=== PATIENT | female | born 1985 | race Caucasian/White ===

== ENCOUNTER 2016-02-27 13:06 | Emergency (ER) | payer OTHER ==
[~2016-02-27 13:06] MED LIST: NAPR250T57 PO; PERC5TAB12 PO; PREN1TAB30 PO; ZANTTAB9 PO
[2016-02-27 13:08] VITALS: BP 118/68; PULSE 106; RESP 12; TEMP 98.3; O2SAT 97
[2016-02-27] MEDS ORDERED: PROG100C PO (14:59)
[2016-02-27] MEDS ORDERED: ZOFR4TAB PO (14:59)
[2016-02-27] MEDS ORDERED: SODIUM CHLOR 0.9% 1000 ML INJ 1,000 ML IV SCH ×2 (15:08→16:10)
--- NOTE | 2016-02-27 15:09 | PD ---
HPI Chief Complaint: Related Problem Time Seen by Provider: 15:09 Travel History International Travel<30 days: No Contact w/Intl Traveler<30days: No Traveled to known affect area: No History of Present Illness HPI 30-year-old female presents to the emergency department for evaluation of nausea and vomiting since last night. The patient is approximately 9 weeks , dates confirmed by an ultrasound done at her TOOL AND DIE MAKER's office. States that last night she began to have nausea and vomiting and has been unable to keep any food or fluids down since last night. States that her TOOL AND DIE MAKER Dr. Vaughan called in a prescription for Zofran but this has not improved her symptoms. States she is also having some mild abdominal cramping mostly epigastric region. She denies any fever, chills, diarrhea, constipation, bloody stool, bloody vomit, vaginal bleeding, vaginal discharge, burning with urination, painful urination, hematuria. Denies any prior abdominal surgeries. No other complaints. PFSH Past Medical History Medical History: Denies Significant Hx Immunizations Current: Yes Influenza Vaccination: No ?: LMP: 9 WKS PREGO Para: 1 Miscarriage: 2 Past Surgical History Surgical History: No Previous Surgery Section: Yes Social History Alcohol Use: Yes (occas) Tobacco Use: No Substance Use: No Allergies-Medications (Allergen,Severity, Reaction): Coded Allergies: No Known Allergies (Unverified , 02/27/16) Reported Meds & Prescriptions Reported Meds & Active Scripts Active Reported Zofran (Ondansetron HCl) 4 Mg Tab 4 Mg PO Q6HR PRN Progesterone Micronized 100 Mg Cap 100 Mg PO BID Review of Systems Except as stated in HPI: all other systems reviewed are Neg Physical Exam Narrative GENERAL: Well-nourished and well-developed pleasant female patient in no acute distress who is nontoxic appearing. SKIN: Warm and dry. HEAD: Normocephalic and atraumatic. EYES: No injection, drainage, or hyphema noted. PERRLA. EOMI. ENT: No nasal drainage noted. Oropharynx is clear. NECK: Supple and the trachea is midline. CARDIOVASCULAR: Regular rate and rhythm. RESPIRATORY: Breath sounds are equal bilaterally with no accessory muscle use, wheezing, rhonchi, or crackles. GASTROINTESTINAL: Abdomen is soft, non-tender, and nondistended. No rebound tenderness or guarding. Negative McBurney's point. Negative Mendoza's sign. MUSCULOSKELETAL: No obvious deformities, swelling, cyanosis, or ecchymosis is present throughout the upper and lower extremities. Patient has full range of motion without any signs of neurovascular compromise. NEUROLOGICAL: Awake, alert, and oriented. Normal speech and gait. Cranial nerves are grossly intact. Data Data Last Documented VS Vital Signs Date Time Temp Pulse Resp B/P Pulse Ox O2 Delivery O2 Flow Rate FiO2 02/27/16 13:08 98.3 106 12 118/68 97 Room Air Orders Beta Hcg (Quant/Titer) (02/27/16 15:08) Complete Blood Count With Diff (02/27/16 15:08) Comprehensive Metabolic Panel (02/27/16 15:08) Urinalysis - C+S If Indicated (02/27/16 15:08) Iv Access Insert/Monitor (02/27/16 15:08) Sodium Chloride 0.9% Flush (Ns Flush) (02/27/16 15:15) Lipase (02/27/16 15:08) Ondansetron Inj (Zofran Inj) (02/27/16 15:15) Sodium Chlor 0.9% 1000 Ml Inj (Ns 1000 M (02/27/16 15:08) Sodium Chlor 0.9% 1000 Ml Inj (Ns 1000 M (02/27/16 16:10) Labs Laboratory Tests Test 02/27/16 15:20 White Blood Count 9.2 TH/MM3 Red Blood Count 4.71 MIL/MM3 Hemoglobin 14.2 GM/DL Hematocrit 40.3 % Mean Corpuscular Volume 85.6 FL Mean Corpuscular Hemoglobin 30.1 PG Mean Corpuscular Hemoglobin 35.2 % Concent Red Cell Distribution Width 12.8 % Platelet Count 176 TH/MM3 Mean Platelet Volume 9.0 FL Neutrophils (%) (Auto) 78.9 % Lymphocytes (%) (Auto) 14.6 % Monocytes (%) (Auto) 5.9 % Eosinophils (%) (Auto) 0.3 % Basophils (%) (Auto) 0.3 % Neutrophils # (Auto) 7.2 TH/MM3 Lymphocytes # (Auto) 1.3 TH/MM3 Monocytes # (Auto) 0.5 TH/MM3 Eosinophils # (Auto) 0.0 TH/MM3 Basophils # (Auto) 0.0 TH/MM3 CBC Comment DIFF FINAL Differential Comment Urine Color YELLOW Urine Turbidity CLEAR Urine pH 6.5 Urine Specific [place] 1.032 Urine Protein TRACE mg/dL Urine Glucose (UA) NEG mg/dL Urine Ketones 150 mg/dL Urine Occult Blood NEG Urine Nitrite NEG Urine Bilirubin NEG Urine Urobilinogen LESS THAN 2.0 MG/DL Urine Leukocyte Esterase NEG Urine RBC 2 /hpf Urine WBC 2 /hpf Urine Squamous Epithelial 1 /hpf Cells Urine Mucus MANY /lpf Microscopic Urinalysis Comment CULT NOT INDICATED Sodium Level 135 MEQ/L Potassium Level 3.4 MEQ/L Chloride Level 103 MEQ/L Carbon Dioxide Level 23.9 MEQ/L Anion Gap 8 MEQ/L Blood Urea Nitrogen 10 MG/DL Creatinine 0.48 MG/DL Estimat Glomerular Filtration 152 ML/MIN Rate Random Glucose 83 MG/DL Calcium Level 7.9 MG/DL Total Bilirubin 0.8 MG/DL Aspartate Amino Transf 8 U/L (AST/SGOT) Alanine Aminotransferase 17 U/L (ALT/SGPT) Alkaline Phosphatase 46 U/L Total Protein 6.8 GM/DL Albumin 3.4 GM/DL Lipase 83 U/L Human Chorionic Gonadotropin, 84256 MIU/ML Quant [facility] Medical Decision Making Medical Screen Exam Complete: Yes Emergency Medical Condition: Yes Differential Diagnosis Nausea and vomiting in versus dehydration versus electrolyte abnormality versus pancreatitis versus UTI Narrative Course 30-year-old female presents to the emergency department for evaluation of nausea and vomiting for one day. Patient is afebrile, vital signs are stable. Abdominal examination is benign, she has no tenderness to palpation on abdominal exam. IV access is obtained, labs have been drawn and sent. Patient is given IV fluids and Zofran 4 mg IV. CBC is unremarkable. CMP shows slightly decreased potassium of 3.4 but is otherwise unremarkable. Urinalysis shows 150 ketones and few mucus, otherwise unremarkable. Patient has remained stable and without complaint while here in the emergency department. She has received 2 L of IV fluid. States she is feeling much better. She is able to keep down oral fluids and has eaten a few crackers as well. She is stable for discharge to follow-up as an outpatient with her OB/ MANAGER TECH[employer]. She has a prescription for Zofran at home. Discussed supportive care and when to return to the emergency department. Patient verbalizes understanding and is in agreement with treatment plan. Physician Communication Physician Communication I spoke with Dr. Vaughan, the patient's TOOL AND DIE MAKER, who reports that he did see the patient in office today and advised her to come to the emergency department for IV fluids and to have labs drawn. I discussed with him my current plan and he is in agreement with lab work and IV fluids as well as antiemetics. He does confirm that the patient had a viable IUP on ultrasound 2 weeks ago at his office. Diagnosis Primary Impression: Nausea and vomiting during Referrals: Graphics Programmer Patient Instructions: General Instructions Additional Instructions: Drink plenty of fluids. Take Zofran as prescribed by Dr. Vaughan. Follow-up with your OBGYN. Return to the ED for any acute worsening of symptoms. Med/Other Pt SpecificInfo: No Change to Meds Disposition: 01 DISCHARGE HOME Condition: Stable Nany [place] Feb 27, 2016 15:09
[2016-02-27] MEDS ORDERED: SODIUM CHLORIDE 0.9% FLUSH 5 ML FLUSH IVF PRN (15:15)
[2016-02-27] MEDS ORDERED: ONDANSETRON HCL 4 MG/2 ML VIAL IV PUSH ONE (15:15)
[2016-02-27 15:59] LABS: BLOOD, URINE NEG (NEG); COMMENT (UR) CULT NOT INDICATED; CULTURE IF INDICATED CULT NOT INDICATED; GLUCOSE,URINE NEG (NEG); KETONE, URINE 150 mg/dL (NEG); MUCUS URINE MANY /lpf (OCC); NITRITE,URINE NEG (NEG); PH, URINE 6.5 (5.0-8.5); SQUAMOUS EPITHELIAL CELL URINE 1 /hpf (0-5); URINE COLOR YELLOW (YELLW/STRAW)
[2016-02-27 16:01] LABS: AUTOMATED NEUTROPHIL # 7.2 TH/MM3 (1.8-7.7); BASOPHIL % 0.3 % (0.0-2.0); EOSINOPHIL % 0.3 % (0.0-4.0); HEMATOCRIT 40.3 % (35.0-46.0); HEMO FLAGS DIFF FINAL; LYMPH % 14.6 % (9.0-44.0); LYMPHOCYTE # 1.3 TH/MM3 (1.0-4.8); MEAN CELL VOLUME 85.6 FL (80.0-100.0); MEAN CORPUSCULAR HEMOGLOBIN 30.1 PG (27.0-34.0); MEAN CORPUSCULAR HGB CONC 35.2 % (32.0-36.0); MONO % 5.9 % (0.0-8.0); NEUT % 78.9 % (16.0-70.0); PLATELET COUNT 176 TH/MM3 (150-450); RED BLOOD COUNT 4.71 MIL/MM3 (4.00-5.30); RED CELL DISTRIBUTION WIDTH 12.8 % (11.6-17.2); WHITE BLOOD COUNT 9.2 TH/MM3 (4.0-11.0)
[2016-02-27 16:20] LABS: ANION GAP 8 MEQ/L (5-15); AST (GOT) 8 U/L (15-37); BICARBONATE 23.9 MEQ/L (21.0-32.0); BLOOD UREA NITROGEN 10 MG/DL (7-18); CHLORIDE 103 MEQ/L (98-107); GLOMERULAR FILTRATION RATE 152 ML/MIN (>89); POTASSIUM 3.4 MEQ/L (3.5-5.1); SODIUM (NA) 135 MEQ/L (136-145)
[2016-02-27 16:38] LABS: ALKALINE PHOSPHATASE 46 U/L (45-117); ALT (GPT) 17 U/L (10-53); BETA HCG QUANT 75884 MIU/ML (0-5); TOTAL BILIRUBIN ADULT 0.8 MG/DL (0.2-1.0)
== END 2016-02-27 17:20 | disposition home or self-care (01) ==
LOC: NETRI 13:06
DX: O21.9 Vomiting of pregnancy, unspecified (principal); Z3A.09 9 weeks gestation of pregnancy
CPT/HCPCS: 80053; 81001; 83690; 84702; 85025; 96361; 96374; 99284; J2405; J7030

== ENCOUNTER → 2016-03-04 | Outpatient (CLI) | payer OTHER ==
[~2016-03-04] MED LIST changes: -NAPR250T57 PO; -PERC5TAB12 PO; -PREN1TAB30 PO; +PROG100C PO; -ZANTTAB9 PO; +ZOFR4TAB PO
== END ==
LOC: CLAB 08:56
PROVIDERS: ATTEND Obstetrics & Gynecology
DX: O36.0191 Maternal care for anti-D [Rh] antibodies, unspecified trimester, fetus 1 (principal); Z41.8 Encounter for other procedures for purposes other than remedying health state
CPT/HCPCS: 36415; 90384; 96372; J2790

== ENCOUNTER → 2016-03-19 | Outpatient (CLI) | payer OTHER | LOC: HPND 09:57 | PROVIDERS: ATTEND Obstetrics & Gynecology | DX: O26.21 Pregnancy care for patient with recurrent pregnancy loss, first trimester (principal); O34.211 Maternal care for low transverse scar from previous cesarean delivery | CPT/HCPCS: 36416; 76813 ==

== ENCOUNTER 2016-08-23 10:59 | Inpatient (IN) | payer OTHER ==
[2016-09-19] VITALS (16 sets, daily range): BP systolic 100–122; BP diastolic 61–76; PULSE 18–76; RESP 16–20; TEMP 97.5–97.9; O2SAT 99–100
[2016-09-19] MEDS: LACTATED RINGER'S 1000 ML INJ 1,000 ML IV SCH (13:04)
--- NOTE | 2016-09-19 13:39 | MH ---
cc: TIARA SCHWARTZ DATE OF ADMISSION: 09/19/2016 ADMITTING DIAGNOSES 1. Term . 2. Previous for failure to progress. HISTORY OF PRESENT ILLNESS A 31-year-old white female para 1-0-2-1 with EDC of 09/26/2016 by early ultrasound. Her course was benign. She required progesterone support in the first trimester. Her first TM screen was normal with a low MADELEINE-A hormone, had careful followup for growth and testing has been normal. Her panorama test was normal. She is now admitted for repeat section. PAST MEDICAL HISTORY PREVIOUS SURGERY 1. 2010, laparoscopy for ruptured cyst 2. 2013, she had a for failure to progress. 3. She had miscarriage x 2 in 2015. MEDICATIONS Vitamins. ALLERGIES None. TRANSFUSIONS None. SOCIAL HISTORY She is . She is a teacher. Alcohol, tobacco and drugs are none. PHYSICAL EXAMINATION GENERAL: A well-nourished, well-developed white female. VITAL SIGNS: Stable. HEENT: Exam is normal. CHEST: Clear. HEART: Regular rate. BREASTS: The breasts are symmetrical. ABDOMEN: Benign, . EFW of 1300 grams. PELVIC: The cervix is long, thick and closed. EXTREMITIES: Normal. ASSESSMENT As above. PLAN She is now admitted for repeat section. While in the office I explained the procedures, the risks, benefits and complications and the risk of delaying delivery and she wished to proceed. MD GARY Torres/CRISTAL /1:23 PM /1:27 PM
[2016-09-19] MEDS ORDERED: OXYTOCIN 10 UNIT/ML AMP ONE (16:23)
[2016-09-19] MEDS ORDERED: ACETAMINOPHEN 1000 MG/100 ML VIAL IV ONE (16:24)
[2016-09-19] MEDS ORDERED: CITRIC ACID-SODIUM CITRATE LIQ 30 ML UDC PO SCH (16:30)
[2016-09-19 16:32] LABS: AUTOMATED NEUTROPHIL # 8.3 TH/MM3 (1.8-7.7); BASOPHIL % 0.4 % (0.0-2.0); EOSINOPHIL # 0.1 TH/MM3 (0-0.4); EOSINOPHIL % 0.8 % (0.0-4.0); HEMATOCRIT 40.5 % (35.0-46.0); HEMO FLAGS DIFF FINAL; LYMPH % 22.3 % (9.0-44.0); LYMPHOCYTE # 2.7 TH/MM3 (1.0-4.8); MEAN CELL VOLUME 87.2 FL (80.0-100.0); MEAN CORPUSCULAR HGB CONC 34.4 % (32.0-36.0); NEUT % 68.5 % (16.0-70.0); PLATELET COUNT 182 TH/MM3 (150-450); RED BLOOD COUNT 4.65 MIL/MM3 (4.00-5.30); RED CELL DISTRIBUTION WIDTH 13.7 % (11.6-17.2); WHITE BLOOD COUNT 12.2 TH/MM3 (4.0-11.0)
[2016-09-19 16:36] LABS: BLOOD, URINE NEG (NEG); COMMENT (UR) CULT NOT INDICATED; CULTURE IF INDICATED CULT NOT INDICATED; GLUCOSE,URINE NEG (NEG); KETONE, URINE NEG (NEG); MUCUS URINE FEW /lpf (OCC); NITRITE,URINE NEG (NEG); SQUAMOUS EPITHELIAL CELL URINE 3 /hpf (0-5); URINE COLOR YELLOW (YELLW/STRAW)
[2016-09-19] MEDS ORDERED: LACTATED RINGER'S 1000 ML IV ONE (17:00)
[2016-09-19] MEDS ORDERED: ceFAZolin 2 GM PREMIX 50 ML IV SCH (17:00)
[2016-09-19] MEDS ORDERED: LACTATED RINGER'S 1000 ML IV SCH (17:00)
[2016-09-19] MEDS ORDERED: MORPHINE SULFATE PF 5 MG/10 ML VIAL ONE (17:58)
[2016-09-19] MEDS ORDERED: ONDANSETRON HCL 4 MG/2 ML VIAL ONE (17:59)
[2016-09-19] MEDS ORDERED: KETOROLAC TROMETHAMINE 60 MG/2 ML (IM) VIAL IM PRN (18:00)
[2016-09-19] MEDS: ACETAMINOPHEN 1000 MG/100 ML VIAL IV SCH (18:00)
[2016-09-19] MEDS ORDERED: MEASLES, MUMPS, RUBELLA VACCINE 0.5 ML VIAL SQ ONE (18:00)
[2016-09-19] MEDS ORDERED: SIMETHICONE 80 MG CHEWABLE TAB PO PRN (18:00)
[2016-09-19] MEDS ORDERED: ONDANSETRON HCL 4 MG/2 ML VIAL IVP PRN (18:00)
[2016-09-19] MEDS ORDERED: oxyCODONE/ACETAMINOPHEN 5 MG/325 MG TAB PO PRN ×2 (18:00)
[2016-09-19] MEDS ORDERED: OXYTOCIN 30 UNITS-500ML PREMIX 500 ML IV ONE (18:00)
[2016-09-19] MEDS ORDERED: SODIUM CHLORIDE 0.9% FLUSH 5 ML FLUSH IV PRN (18:00)
[2016-09-19] MEDS ORDERED: IBUPROFEN 600 MG TAB PO PRN (18:00)
[2016-09-19] MEDS ORDERED: OXYTOCIN 30 UNITS-500ML PREMIX 500 ML IV PRN (18:15)
[2016-09-19] MEDS ORDERED: EPIDURAL-NO SYSTEMIC NARCOTICS PRN (20:00)
[2016-09-19] MEDS ORDERED: EPIDURAL-DIPHENHYDRAMINE HCL 50 MG/ML VIAL IV PUSH PRN (20:00)
[2016-09-19] MEDS ORDERED: EPIDURAL-NALOXONE HCL 0.4 MG/ML AMP IV PRN (20:00)
[2016-09-19] MEDS ORDERED: EPIDURAL-DIPHENHYDRAMINE HCL 50 MG CAP PO PRN (20:00)
[2016-09-19] MEDS ORDERED: EPIDURAL-DO NOT ADMINISTER ANTICOAGULANTS PRN (20:00)
--- NOTE | 2016-09-19 20:58 | MP ---
cc: TIARA VAUGHAN DATE OF SURGERY 09/19/2016. PREOPERATIVE DIAGNOSIS 1. Term 2. Previous 3. Low Pap A hormone. POSTOPERATIVE DIAGNOSIS 1. Term 2. Previous 3. Low Pap A hormone. 4. Delivered 5. Meconium-stained fluid PROCEDURE Repeat low transverse section. ANESTHESIA Spinal SURGEON Disha Vaughan MD COMBINATION PRESSER Constance Xie ESTIMATED BLOOD LOSS 600 mL FLUIDS 1 liter crystalloid. OBJECTIVE FINDINGS Following induction of adequate spinal anesthesia, the patient was prepped and draped supine on the operating table left lateral tilt position usual sterile fashion with the bladder being drained via Pozo catheterization. The abdomen opened through a Pfannenstiel incision using a knife to cut down through the skin to the fascia excising her old scar in the process. The fascia opened transversely, stripped from the muscles. Rectus muscle split in the midline and the peritoneum opened sharply without incident. The bladder flap was taken down sharply and retracted inferiorly with the Janelle blade. The lower uterine segment was incised transversely with a knife, extended with blunt dissection. meconium stained fluid. The baby was in LOT position. The vacuum was applied to the occiput and used to gently lift the head through the abdominal wound. Mouth was suctioned, cord clamped and cut and the baby to awaiting team. Viable vigorous male, Apgars 8 and 9, weight 7 pounds 1 ounce. Cord blood sent for typing. Placenta manually removed and uterine cavity cleaned with laps. Uterus was exteriorized and closed with ____running suture, first with a running locking stitch of 0 Vicryl second with running imbricating stitch of 0 Vicryl. On posterior inspection uterus, tubes and ovaries were normal. Uterus placed back in cavity. Irrigation performed. No bleeding was evident and the bladder flap was closed with running stitch of 3-0 Vicryl. All lap structures removed. Counts were correct. The anterior peritoneum closed with running stitch of 2-0 Vicryl. The fascia closed with running locking stitch of 0 Vicryl corner to midline and tied, subcu with 3-0 Vicryl and skin with running subcuticular 3-0 Monocryl. Dermabond applied. All counts correct and the patient was awaken and taken to recovery room in good condition. MD GARY Torres/ /5:48 PM /8:46 PM
[2016-09-19] MEDS ORDERED: ZOLPIDEM TARTRATE 5 MG TAB PO PRN (21:00)
[2016-09-19] MEDS ORDERED: SODIUM CHLORIDE 0.9% FLUSH 5 ML FLUSH IV SCH (21:00)
[2016-09-19] MEDS ORDERED: DOCUSATE SODIUM 50 MG/SENNA 8.6 MG TAB PO PRN (21:00)
[2016-09-20 00:15] VITALS: BP 117/72; PULSE 78; RESP 17; TEMP 97.6; O2SAT 100
[2016-09-20] MEDS: LACTATED RINGER'S 1000 ML INJ 1,000 ML IV SCH (01:48)
[2016-09-20] MEDS: ACETAMINOPHEN 1000 MG/100 ML VIAL IV SCH ×2 (01:48→10:47)
[2016-09-20 05:30] VITALS: BP 108/69; PULSE 68; RESP 20; TEMP 98.3; O2SAT 99
[2016-09-20 08:00] VITALS: BP 105/72; PULSE 80; RESP 18; TEMP 97.6
[2016-09-20] MEDS: KETOROLAC TROMETHAMINE 30 MG/ML (IVP) VIAL IV PUSH PRN ×2 (08:02→17:03)
[2016-09-20 08:06] LABS: AUTOMATED NEUTROPHIL # 8.1 TH/MM3 (1.8-7.7); BASOPHIL % 0.3 % (0.0-2.0); EOSINOPHIL % 0.4 % (0.0-4.0); HEMATOCRIT 35.9 % (35.0-46.0); HEMO FLAGS DIFF FINAL; LYMPH % 18.2 % (9.0-44.0); MEAN CORPUSCULAR HEMOGLOBIN 30.4 PG (27.0-34.0); MEAN CORPUSCULAR HGB CONC 34.6 % (32.0-36.0); MONO % 7.4 % (0.0-8.0); NEUT % 73.7 % (16.0-70.0); PLATELET COUNT 136 TH/MM3 (150-450); RED BLOOD COUNT 4.08 MIL/MM3 (4.00-5.30); RED CELL DISTRIBUTION WIDTH 13.9 % (11.6-17.2); WHITE BLOOD COUNT 10.9 TH/MM3 (4.0-11.0)
[2016-09-20 08:32] LABS: BICARBONATE 26.3 MEQ/L (21.0-32.0); POTASSIUM 3.6 MEQ/L (3.5-5.1)
[2016-09-20 13:00] VITALS: BP 117/61; PULSE 71; RESP 16; TEMP 98.2
[2016-09-20] MEDS: ACETAMINOPHEN 325 MG TAB PO PRN (19:49)
[2016-09-20 19:56] VITALS: BP 109/71; PULSE 78; RESP 16; TEMP 97.9
[2016-09-21] MEDS: ACETAMINOPHEN 325 MG TAB PO PRN ×2 (02:38→11:56)
[2016-09-21] MEDS: KETOROLAC TROMETHAMINE 30 MG/ML (IVP) VIAL IV PUSH PRN ×2 (05:27→11:56)
[2016-09-21 08:00] VITALS: BP 109/74; PULSE 87; RESP 16; TEMP 98.1
[2016-09-21] MEDS ORDERED: DIPHTH/TETANUS/ACEL PERTUSSIS (BOOSTER) 0.5 ML VIAL/PFS IM ONE (09:00)
[2016-09-21] MEDS ORDERED: OXYC1TAB63 PO (10:51)
--- NOTE | 2016-09-21 10:51 | HHI.DCPOC ---
Discharge Care Plan Report Symptoms to Your Doctor -Temperature above 100.5 degrees -Redness, of incision or excessive or foul smelling drainage -Unusual pain or calf pain -Increased vaginal bleeding -Painful or difficulty urinating -Feelings of extreme sadness or anxiety after 2 weeks Goals to Promote Your Health * To prevent worsening of your condition and complications * To maintain your health at the optimal level Directions to Meet Your Goals Take your medications as prescribed Follow your dietary instruction Follow activity as directed Ensure plenty of rest for recovery Drink fluids for hydration Keep your appointments as scheduled Take your immunizations and boosters as scheduled If your symptoms worsen call your PCP, if no PCP go to Urgent Care Center or Emergency Room Smoking is Dangerous to Your Health. Avoid second hand smoke Call the 24-hour crisis hotline for domestic abuse at Alexsander Vaughan MD Sep 21, 2016 10:51
--- NOTE | 2016-09-21 16:41 | MD ---
cc: TIARA SCHWARTZ ADMISSION DATE: 09/19/2016 DISCHARGE DATE: 09/21/16 [facility] Visit Search.Discharge Date ADMISSION DIAGNOSIS 1. Term 2. Previous 3. Low Pap A hormone. DISCHARGE DIAGNOSIS 1. Term 2. Previous 3. Low Pap A hormone. 4. delivered. HISTORY OF PRESENT ILLNESS The patient is a 31-year-old white female para 1-0-2-1 with an EDC of 09/26/2016. Her preop course was benign. She had progesterone support in the first trimester. Her first TM screen was normal except for low Pap A hormone. She had normal panorama testing. She had positive GBS. She had for failure to progress. She was admitted for repeat section on 09/19/2016. She had delivery of a viable vigorous male, Apgars were 9 and 9, weight 7 pounds 1 ounce. Baby's name ____and [facility]. Her pre and postop labs were normal. She was Rh negative. Baby is positive. She did have RhoGAM prior to discharge. She was carefully instructed in wound instruction and care. She will return to return to see me in 1 week. She was given prescription for Percocet one p.o. q.4 h as needed pain #30. She also will use [id number] Motrin and Tylenol. MD GARY Torres/ /10:55 AM /4:29 PM
== END 2016-09-21 17:05 | disposition home or self-care (01) | DRG 766 ==
LOC: H2EB 09-19 15:17 → H1EA 09-19 19:16
PROVIDERS: ADMIT Obstetrics & Gynecology; ATTEND Obstetrics & Gynecology
PROC: 10D00Z1 Extraction of Products of Conception, Low, Open Approach (ICD-10-PCS; principal; 2016-09-19)
PROC: 0HB7XZZ Excision of Abdomen Skin, External Approach (ICD-10-PCS; 2016-09-19)
DX: O34.211 Maternal care for low transverse scar from previous cesarean delivery (principal); O26.893 Other specified pregnancy related conditions, third trimester; Z3A.40 40 weeks gestation of pregnancy; Z37.0 Single live birth; O77.0 Labor and delivery complicated by meconium in amniotic fluid; O28.1 Abnormal biochemical finding on antenatal screening of mother; O99.824 Streptococcus B carrier state complicating childbirth
CPT/HCPCS: 80048; 81001; 85025; 85461; 86850; 86900; 86901; 90384; 90715; J0131; J0690; J1885; J2274; J2405; J2590; J2790; J7120